=== PATIENT | male | born 1985 | race Caucasian/White ===

== ENCOUNTER 2017-05-02 23:54 | Emergency (ER) | payer OTHER ==
[~2017-05-02] VITALS: Ht 170.2 cm; Wt 90.7 kg
--- NOTE | 2017-05-03 | PHYS DOC ---
Adult General Chief Complaint Chief Complaint: THUMB HPI HPI Patient is a 31 year old male who presents with laceration of the right thumb. He is right-handed is using a circular saw tonight and caught his thumb on the blade. He is unsure when his last tetanus shot was. He denies any other injuries other than his thumb. He does states had 7 or 8 beers over the last 3 hours. He states the laceration happened at 1045 tonight. Review of Systems Review of Systems Constitutional: Denies fever or chills [] Eyes: Denies change in visual acuity, redness, or eye pain [] HENT: Denies nasal congestion or sore throat [] Respiratory: Denies cough or shortness of breath [] Cardiovascular: No additional information not addressed in HPI [] GI: Denies abdominal pain, nausea, vomiting, bloody stools or diarrhea [] : Denies dysuria or hematuria [] Musculoskeletal: Denies back pain or joint pain [] Integument: Denies rash, positive for laceration of the right thumb Neurologic: Denies headache, focal weakness or sensory changes [] Endocrine: Denies polyuria or polydipsia [] Current Medications Current Medications Current Medications Medications (Trade) Dose Ordered Sig/Tanya Start Time Stop Time Status Last Admin Dose Admin Cefazolin Sodium 50 ml @ 100 mls/hr 1X ONCE 05/03/17 00:15 05/03/17 00:44 UNV Clindamycin Phosphate 50 ml @ 100 mls/hr 1X ONCE 05/03/17 01:00 05/03/17 01:29 05/03/17 00:50 100 MLS/HR Diphtheria/ Tetanus/Acell Pertussis (Boostrix) 0.5 ml ONCE ONCE 05/03/17 00:30 05/03/17 00:31 DC 05/03/17 01:12 0.5 ML Morphine Sulfate 2 mg 1X ONCE 05/03/17 01:30 05/03/17 01:31 05/03/17 01:13 2 MG Allergies Allergies Allergies Coded Allergies Type Severity Reaction Last Updated Verified Penicillins Adverse Reaction Severe 05/03/17 Yes Physical Exam Physical Exam Constitutional: Well developed, well nourished, no acute distress, non-toxic appearance. [] HENT: Normocephalic, atraumatic, bilateral external ears normal, oropharynx moist, no oral exudates, nose normal. [] Eyes: PERRLA, EOMI, conjunctiva normal, no discharge. [] Neck: Normal range of motion, no tenderness, supple, no stridor. [] Cardiovascular:Heart rate regular rhythm, no murmur [] Lungs & Thorax: Bilateral breath sounds clear to auscultation [] Abdomen: Bowel sounds normal, soft, no tenderness, no masses, no pulsatile masses. [] Skin: Warm, dry, no erythema, no rash. [] Back: No tenderness, no CVA tenderness. [] Extremities: no cyanosis, no clubbing, no edema. Laceration extending over the middle of the thumb parallel to the nail goes down to the PIP joint Neurologic: Alert and oriented X 3, normal motor function, normal sensory function, no focal deficits noted. [] Psychologic: Affect normal, judgement normal, mood normal. [] Current Patient Data Vital Signs Vital Signs Date Time Temp Pulse Resp B/P (MAP) Pulse Ox O2 Delivery O2 Flow Rate FiO2 05/03/17 00:10 97.6 77 20 140/90 (107) 99 Room Air 97.6 EKG EKG [] Radiology/Procedures Radiology/Procedures 4 views of the right hand shows fracture with dislocation of the right thumb that includes the distal PIP joint with laceration at the tip of the thumb down to the PIP joint, as interpreted by me. Impressions: Right thumb laceration with open fracture Course & Med Decision Making Course & Med Decision Making Pertinent Labs and Imaging studies reviewed. (See chart for details) The thumb was x-rayed and wrapped with sterile gauze I spoke with [facility] transfer team who accepts the patient to a direct transfer to the ER by subcutaneous Dr. Zach Jackson. Patient's tetanus shot was updated and 60 mg clinic might was given since he has an allergy to penicillin and were unsure how severe his allergy is. Patient is agreeable to the plan and being to transferred in stable condition at this time in private vehicle. Dragon Disclaimer Dragon Disclaimer This electronic medical record was generated, in whole or in part, using a voice recognition dictation system. Departure Departure Impression: Primary Impression: Open fracture Disposition: 02 TRANSFER [facility] Condition: STABLE ROSE [place]IS MD May 03, 2017 00:00
[2017-05-03] MEDS ORDERED: DIPHTH,PERTUSS(ACELL),TET TOX 0.5 ML DISP.SYRIN. VAX IM ONE (00:30)
[2017-05-03] MEDS ORDERED: CLINDAMYCIN 600MG PREMIX 50 ML IV ONE (01:00)
[2017-05-03 01:26] VITALS: BP 123/76
[2017-05-03] MEDS ORDERED: MORPHINE SULFATE 2 MG/ML DISP.SYRIN. IV ONE (01:30)
--- NOTE | 2017-05-03 07:37 | RAD ---
Exam performed: 3 views right hand. History: Trauma, laceration of the thumb. Date of service: 05/03/17. Comparison: None available 3 views right hand findings: There is a severely comminuted intra-articular fracture of the first proximal phalanx. There is also comminuted fracture base of first distal metatarsal. Soft tissue laceration and swelling is seen in the thumb. No foreign body. Impression: Severely comminuted intra-articular fracture first proximal and distal phalanx with soft tissue laceration and diffuse soft tissue swelling.
== END 2017-05-03 01:44 | disposition short-term general hospital (02) ==
LOC: ER 23:54
DX: S62.521B Displaced fracture of distal phalanx of right thumb, initial encounter for open fracture (principal); Z88.0 Allergy status to penicillin; W27.0XXA Contact with workbench tool, initial encounter; Y93.89 Activity, other specified; Y92.89 Other specified places as the place of occurrence of the external cause; Y99.8 Other external cause status
CPT/HCPCS: 73130; 90471; 90715; 96365; 96375; 99285; J2270; J3490